=== PATIENT | male | born 1975 | race Caucasian/White ===

== ENCOUNTER 2018-09-01 12:35 | Emergency (ER) | payer BC ==
[~2018-09-01] VITALS: Ht 170.2 cm; Wt 98.9 kg
[2018-09-01 12:41] VITALS: BP 146/85; Ht 170.2 cm; Wt 98.9 kg
== END 2018-09-01 15:31 | disposition home or self-care (01) ==
LOC: ED 12:35
DX: M10.9 Gout, unspecified (principal)